=== PATIENT | female | born 1980 | race Caucasian/White ===

== ENCOUNTER → 2017-07-21 12:39 | Outpatient (CLI) | payer OTHER, SELFPAY ==
[2017-07-24 12:17] LABS: HPV Reflexed? NOT INDICATED
== END ==
PROVIDERS: Family Provider Family Medicine; PCP Family Medicine; Visit Provider Obstetrics & Gynecology
DX: Z12.4 Encounter for screening for malignant neoplasm of cervix (principal)
CPT/HCPCS: 88175; G0145

== ENCOUNTER → 2018-04-26 15:17 | Outpatient (CLI) | payer OTHER, SELFPAY ==
[2018-04-26 17:44] LABS: Chlamydia Trachomatis by PCR Negative (Negative); Neisserai gonorrhoeae by PCR Negative (Negative); Probe Check PASS; Sample Adequacy Control PASS; Specimen Processing Control PASS
== END ==
PROVIDERS: Family Provider Family Medicine; PCP Family Medicine; Visit Provider Obstetrics & Gynecology
DX: Z11.3 Encounter for screening for infections with a predominantly sexual mode of transmission (principal)
CPT/HCPCS: 87491; 87591

== ENCOUNTER 2018-08-23 14:00 | Outpatient (CLI) | payer OTHER, SELFPAY ==
[2016-11-28 14:28] VITALS: BMI 33.0
[2018-08-23 14:23] VITALS: BMI 37.3
[2018-08-23 14:42] LABS: ROM Internal Control Test YES-OK TO RESULT pt. (Internal QC); ROM Patient Test Negative (Negative)
--- NOTE | 2018-08-24 07:50 | OB.TRI.HP_ITS ---
History of Present Illness Was patient seen by the physician?: Yes Reason For Visit: R/O ROM Date of Service: 08/23/18 Final LÓPEZ: 12/02/18 Final LÓPEZ Source: US <20 weeks Gestational age: 25 Weeks and 4 Days History of Present Illness: 25+ week intrauterine who was at home and noticed a pop. She began having some leaking of fluid. Presented to labor and delivery to rule out rupture of membranes. Allergies No Known Allergies Allergy (Verified 11/27/16 22:03) Laboratory Studies: Laboratory Tests 3 08/23/18 Range/Units 14:15 Vag Amniotic Fld Detect Negative (Negative) NST - FHR Rate Baby A NST Reactive:: Appropriate for gestational age FHR Category:: Category I Impression/Plan 25+ week intrauterine with vaginal discharge versus leaking of urine. ROM test was negative. Sterile speculum exam which was negative nitrazine. Cervix was closed thick and high. No vaginal bleeding noted. Continue routine follow-up in the office.
== END 2018-08-23 15:30 | disposition home or self-care (01) ==
LOC: WPOUT 14:08 → WP 14:08
PROVIDERS: Family Provider Family Medicine; PCP Family Medicine; Referring Provider Obstetrics & Gynecology; Visit Provider Obstetrics & Gynecology
DX: Z03.71 Encounter for suspected problem with amniotic cavity and membrane ruled out (principal)
CPT/HCPCS: 59025; 59050; 84112; 99218; G0378

== ENCOUNTER → 2018-11-02 | Outpatient (CLI) | payer OTHER, SELFPAY | END | disposition home or self-care (01) | LOC: LABSPEC 11-03 10:16 | PROVIDERS: Visit Provider Obstetrics & Gynecology | DX: Z36.85 Encounter for antenatal screening for Streptococcus B (principal) | CPT/HCPCS: 87081 ==

== ENCOUNTER 2018-12-03 06:59 | Inpatient (IN) | payer OTHER, SELFPAY ==
[2018-12-03] MEDS: Lactated Ringers 1,000 ML 50 ML IV (07:30)
[2018-12-03 07:37] VITALS: BMI 39.1
[2018-12-03 08:06] LABS: Absolute Lymphocyte Count 1.67 X10^3/uL (0.83-4.51); Basophil# 0.03 X10^3/uL; Basophil% 0.4 % (0-1); Eosinophil# 0.08 X10^3/uL; Eosinophils% 1.1 % (0-5); Hemoglobin 11.7 g/dL (12.0-15.0); Lymphocyte # 1.67 X10^3/ul (4.0); Lymphocyte % 22.6 % (19-41); Mean Corp Hgb Conc 31.6 g/dL (32-36); Mean Corpuscular Hgb 25.5 pg (27.0-32.0); Mean Corpuscular Volume 80.6 fL (81-99); Mean Platelet Vol. 10.3 fl (6.2-12.0); Monocyte# 0.61 X10^3/uL; Monocyte% 8.2 % (0-10); NRBC Flagged by Analyzer 0 % (0-5); Neutrophil # 4.98 X10^3/uL (2.7-7.7); Neutrophil % 67.3 % (47-70); Platelet Count 135 K/mm3 (150-450); RBC Distribution Width CV 14.4 % (11.6-14.6); RBC Distribution Width SD 41.9 fl (35.1-43.9); Red Blood Count 4.59 M/mm3 (4.2-5.4); White Blood Count 7.4 K/mm3 (4.4-11.0)
--- NOTE | 2018-12-03 08:09 | PCM.HPOB.BLA ---
History and Physical Date of Admission: 12/03/18 OB HISTORY AND PHYSICAL EXAMINATION History of this : 38 yo female Ab0 with EDC 12/02/2018 by 8 weeks 4 days Ultrasound, presents to Labor and Delivery for scheduled induction of labor at 40 1/7 wk with favorable cervix. Feeling some UCs. Plans epidural care remarkable for: A positive Rubella immune. GBS negative. 1. borderline poly RAJI=21cm @ 20 weeks 6 days--repeat u/s 28 weeks 2.) Plan H delivery 3.) Declines MSAFP, CF testing Pertinent Past Medical History: As above. Allergies: NKDA Medications: During - Calcium 500 + D 500 mg(1,250mg) -400 unit tablet; Claritin 10 mg tablet; magnesium 250 mg tablet; Supplement (s) [No Strength]; Supplement (s) [No Strength]; Vitamin C 500 mg tablet; Glucophage XR 750 mg tablet,extended release; Vitamins; albuterol sulfate 90 mcg/actuation HFA Aerosol Inhaler; Probiotic 10 billion cell capsule Review of Systems: Non-contributory Feeling some UCs. PHYSICAL EXAMINATION General Appearance: 38 yo female in no acute distress Vital Signs: AF, VSS Heart: RRR without rubs or gallops Lungs: CTA x 2 Breasts: deferred Abdomen: gravid Cervix: 3/50/-2 AROM clear. Presentation: cephalic Size: AGA Movement: present Heart: 130-140s avg variability Accels. Reassuring with UCs q 3-7 mins(spont) Impression /Plan: Intrauterine . 40 1/7 wk induction. Admit. Plans epidural. AROM performed, Pitocin started. Plts OK for epidural. Patient seen and examined at time of this H and P. See progress notes for changes Fili Connor MD 12/03/18 [id number]
[2018-12-03] MEDS: Oxytocin 30 units/NS 500 ml 30 UNITS/500 ML IV.SOLN IV (08:10)
[2018-12-03] MEDS: Lactated Ringers 500 ML 999 ML IV (10:05)
[2018-12-03] MEDS: fentaNYL-bupivacaine (epidural) 100 ML BAG EPIDURAL ×2 (11:00→14:53)
[2018-12-03] MEDS: Amnioinfusion- 0.9% NS 1,000 ML IV.SOLN. 300 ML INTRA-UTER (13:45)
[2018-12-03] MEDS: Lactated Ringers 1,000 ML 200 ML IV (14:04)
[2018-12-03] MEDS: Oxytocin 30 units/NS 500 ml 30 UNITS/500 ML IV.SOLN 334 UNITS IV (16:00)
--- NOTE | 2018-12-03 16:15 | PCM.OPRPT ---
Vaginal Delivery Maternal Presentation: Elective Induction Method of Induction: Pitocin, Amniotomy Amniotic Membrane Rupture Type: Artificial Amniotic Fluid Description: Clear Final LÓPEZ: 12/02/18 Final LÓPEZ Source: US <20 weeks Gestational age: 40 Weeks and 1 Days Date of Procedure: 12/03/18 Pre-Operative Diagnosis: IUP Post-Operative Diagnosis: IUP Surgery/ Procedure Performed: Vacuum Assisted Vaginal Delivery Type of Anesthesia: Epidural Description of Procedure: Spontaneous vaginal delivery of a viable male with Apgars of 7/9 from an occiput anterior presentation with clear amniotic fluid and normal three-vessel placenta. Cord around the neck x1 tight and across the chest. No episiotomy. Second-degree midline laceration repaired with 3-0 Vicryl suture with epidural anesthesia. Kiwi vacuum suction used x2 gentle pulls from low outlet to expedite delivery of the head due to deep decelerations with pushing. 10 pressure pop-off. Sponges okay. Delivery physician: Tj Hahn MD. Presentation: Vertex Placental Delivery Description: Spontaneous Placenta Disposition: [facility] Cord Vessel Description: 3 Vessels Cord Entanglement: Around neck x 1, tight Estimated Blood Loss: 250 cc Infant A gender: Male (1 minute): 7 (5 minute): 9 Episiotomy Description: None Laceration: Midline, 2nd degree Medications given after delivery: IV Pitocin Complications: None
--- NOTE | 2018-12-03 16:18 | DCINST_ITS ---
Discharge Diet: No Restrictions Discharge Activity: May Shower, May Take a Tub Bath May resume sexual activity in: 4-6 weeks Additional Activity Instructions:: Nothing in the vagina for 4-6 weeks. You may return to work/school in 6 weeks. Call your doctor if you observe: Fever of 101 or Higher, Inability to urinate, Inability to have a bowel movement, Using more than one pad per hour Additional Instructions: If you experience any of the following, contact your healthcare provider. * Bleeding that soaks a pad every hour for 2 hours * Unrelieved incision or abdominal pain * Swelling, redness, discharge or bleeding from your incision or episiotomy site * Your incision begins to separate * Problems urinating (including inability to urinate or burning while urinating). * Visual changes * Severe headache * Flu-like symptoms * Pain or redness in one of both of your breasts * Pain, warmth, tenderness or swelling in your legs, especially the calf area * Frequent nausea and vomiting * Symptoms of depression or anxiety If you experience any of the following, call 911 or go to the nearest Emergency Room. * Chest pain * Problems breathing * Seizure activity * Partial or complete paralysis of a body part, slurred speech, weakness or drooping of the face, or a sudden inability to walk or hold your balance Allergies/Adverse Reactions: Allergies No Known Allergies Allergy (Verified 11/27/16 22:03) Medications to take at Discharge Vits [Prenatabs FA ] 1 tab PO DAILY 08/23/18 Albuterol Sulfate 12/03/18 Please Follow Up With: Tj Hahn MD - [phone] When: Call to make an appointment with your doctor in 6 weeks. Primary Care Physician: Marianna Acevedo PA-C [Primary Care Provider] - Test Results: Test results from this visit will be discussed in further detail at your follow- up appointment, if applicable.
--- NOTE | 2018-12-03 16:18 | PCM.DCVAG ---
Discharge Diet: No Restrictions Discharge Activity: May Shower, May Take a Tub Bath May resume sexual activity in: 4-6 weeks Additional Activity Instructions:: Nothing in the vagina for 4-6 weeks. You may return to work/school in 6 weeks. Call your doctor if you observe: Fever of 101 or Higher, Inability to urinate, Inability to have a bowel movement, Using more than one pad per hour Additional Instructions: If you experience any of the following, contact your healthcare provider. Bleeding that soaks a pad every hour for 2 hours Unrelieved incision or abdominal pain Swelling, redness, discharge or bleeding from your incision or episiotomy site Your incision begins to separate Problems urinating (including inability to urinate or burning while urinating). Visual changes Severe headache Flu-like symptoms Pain or redness in one of both of your breasts Pain, warmth, tenderness or swelling in your legs, especially the calf area Frequent nausea and vomiting Symptoms of depression or anxiety If you experience any of the following, call 911 or go to the nearest Emergency Room. Chest pain Problems breathing Seizure activity Partial or complete paralysis of a body part, slurred speech, weakness or drooping of the face, or a sudden inability to walk or hold your balance Allergies/Adverse Reactions: Allergies No Known Allergies Allergy (Verified 11/27/16 22:03) Medications to take at Discharge Vits [Prenatabs FA ] 1 tab PO DAILY 08/23/18 Albuterol Sulfate 12/03/18 Please Follow Up With: Tj Hahn MD - [phone] When: Call to make an appointment with your doctor in 6 weeks. Primary Care Physician: Marianna Acevedo PA-C [Primary Care Provider] - Test Results: Test results from this visit will be discussed in further detail at your follow-up appointment, if applicable.
[2018-12-03 20:05] VITALS: BP 151/81; PULSE 109; RESP 18; TEMP 35.8
--- NOTE | 2018-12-03 21:45 | NURSING ---
2120 Assisted pt up to BR at this time. Pt tolerated well, with no c/o dizziness. Educated pt on pericare, importance of frequent voiding and s/s to report.
[2018-12-03 23:30] VITALS: BP 123/65; PULSE 96; RESP 16; TEMP 36.5
[2018-12-04 04:00] VITALS: BP 132/79; PULSE 96; RESP 16; TEMP 36.6
[2018-12-04 07:40] VITALS: BP 137/77; PULSE 80; RESP 16; TEMP 36.6
--- NOTE | 2018-12-04 08:58 | PCM.PN.OB ---
Subjective: Patient without complaints. Breast-feeding going well. Wants to go home later today if possible. - Physical Exam Vital Signs Temp Pulse Resp BP 97.8 F 80 16 137/77 H 12/04/18 07:40 12/04/18 07:40 12/04/18 07:40 12/04/18 07:40 Oxygen Delivery Method Room Air Weight: 221 lb Body Mass Index (BMI) 39.1 Intake and Output for Last 24 Hours 12/02/18 12/03/18 12/04/18 23:59 23:59 23:59 Intake Total 3313.87 / 3313.87 Output Total 2550 / 2550 Balance 763.87 / 763.87 Laboratory Tests Past 24 Hrs 12/03/18 07:30 Blood Type A POSITIVE Antibody Screen NEGATIVE Medical Necessity - Tobacco Use Smoking Status: Never smoker Assessment/Plan Doing well day #1 status post routine spontaneous vaginal delivery. Will release to home with routine instructions.
[2018-12-04] MEDS: Ibuprofen 600 MG Tablet PO (11:26)
[2018-12-04 11:30] VITALS: BP 136/82; PULSE 93; RESP 16; TEMP 36.4; O2SAT 98
[2018-12-04 14:00] VITALS: BP 138/81; PULSE 86; RESP 16; TEMP 36.3
[2018-12-04 18:00] VITALS: BP 138/81; PULSE 86; RESP 16; TEMP 36.3
[2018-12-04 18:44] VITALS: BP 138/81; PULSE 86; RESP 16; TEMP 36.3
== END 2018-12-04 18:20 | disposition home or self-care (01) | DRG 807 ==
PROVIDERS: Admitting Provider Obstetrics & Gynecology; Family Provider Family Medicine; PCP Family Medicine; Referring Provider Obstetrics & Gynecology; Visit Provider Obstetrics & Gynecology
DX: O69.1XX0 Labor and delivery complicated by cord around neck, with compression, not applicable or unspecified (principal); Z37.0 Single live birth; Z3A.40 40 weeks gestation of pregnancy; O70.1 Second degree perineal laceration during delivery
CPT/HCPCS: 59025; 59050; 85025; 86850; 86900; 86901; 99218; J7030; J7120; G0378

== ENCOUNTER 2018-12-08 04:30 | Outpatient (CLI) | payer OTHER, SELFPAY ==
[2018-12-08 05:55] VITALS: BMI 36.5
[2018-12-08 06:03] LABS: Hematocrit 30.5 % (37-47); Hemoglobin 9.6 g/dL (12.0-15.0); Mean Corp Hgb Conc 31.5 g/dL (32-36); Mean Corpuscular Hgb 25.9 pg (27.0-32.0); Mean Corpuscular Volume 82.2 fL (81-99); Mean Platelet Vol. 9.6 fl (6.2-12.0); Platelet Count 159 K/mm3 (150-450); RBC Distribution Width CV 14.5 % (11.6-14.6); RBC Distribution Width SD 42.7 fl (35.1-43.9); Red Blood Count 3.71 M/mm3 (4.2-5.4); White Blood Count 5.2 K/mm3 (4.4-11.0)
[2018-12-08 06:15] LABS: Partial Thromboplast Time 25.8 Seconds (24.1-36.2); Prothrombin Time (Protime)PT. 13.2 SECONDS (11.7-14.9)
[2018-12-08 06:15] LABS: Protein, Urine (Random) 8.4 mg/dL (<11.9); Protein:Creat Ratio 249 mg/g CRE (0-200)
[2018-12-08 06:23] LABS: AST(SGOT) 15 U/L (15-37); Alanine Aminotransfer ALT/SGPT 19 U/L (13-56); Creatinine, Serum 0.54 mg/dL (0.55-1.02); EST Glomerular Filtration Rate 134 mL/min (>60); Est Glom Filt Rate - Afr Amer 162 mL/min (>60); Estimated Creatinine Clearance 117.99 ml/min
--- NOTE | 2018-12-08 06:44 | PCM.HPOB.BLA ---
History and Physical Date of Admission: 12/08/18 38 yr old female presents with CC of headache 5 days after vaginal delivery on 12/03/18 States headache is frontal to bitemporal and comes and goes. When she has the headache, her BP is elevated. States no history of chronic headaches. Family member recently had preeclampsia. She states at times has RICHARDSON at the back of the head and at neck, which she thought was related to tension. She last took Tylenol at 6 pm yesterday. Breast feeding. States vaginal bleeding is minimal now, slowed down. Denies any RUQ pain. Has some edema of the ankles. States no problems with her BP in but a little elevated at the end of . ALLERGIES: NKDA MEDICATIONS HISTORY: Patient is also takin. Vitamins, daily 2. albuterol sulfate 90 mcg/actuation HFA Aerosol Inhaler, Two puffs three times a day prn REVIEW OF SYSTEMS: GENERAL - Denies fever, or chills SKIN - Denies skin changes EYES - Denies visual changes EARS - Denies difficulty hearing NOSE - Denies nasal congestion or bleeding MOUTH - Denies sore throat or difficulty swallowing NECK - Denies pain or swelling RESPIRATORY - Denies shortness of breath or wheezing CARDIOVASCULAR - Denies palpitations or chest pain GASTROINTESTINAL - Denies nausea, vomiting, diarrhea, constipation GENITOURINARY - Denies dysuria, frequency of urination, incontinence of urine MUSCULOSKELETAL - Denies joint or muscle pain NEUROLOGICAL - Denies localized numbness or weakness PSYCHIATRIC - Denies depression or anxiety ENDOCRINE - Denies heat or cold intolerance, weight loss or gain HEMATO-IMMUNOLOGIC - Denies excessive bleeding with cuts PAST HISTORY: Breast/Ovarian/Colon Cancers - Cousins x 2 with Cervical Ca Infections - Chicken pox Illnesses - allergies and seasonal Accidents - None History of Abnormal PAPS - Denies Hospitalizations - None SURGICAL HISTORY: 1. 11/28/[address] Harvey 2. [place] MENSTRUAL HISTORY: LMP Known?- UnknownAmount/Duration - 7 to 10 days, Regularity - Irregular, Frequency - variable days, LMP - 06/17/17, Age Onset Menarche - 13 PAST PREGNANCIES: Total Pregnancies - 5; Full Term Pregnancies - 2; Premature - 0; Abortions, Induced - 0; Abortions, Spontaneous - 2; Ectopics - 0; Multiple Births - 0; Living Children - 2 FAMILY HISTORY: nc SOCIAL HISTORY: Alcohol Use - None Smoking - Never Diet - no special diet Lifestyle - moderate stress lifestyle and Exercise - active Seat Belt Use - most of the time Employer - [employer] Job Description - Deputy [employer] Illicit Drug Use - None Sexual Activity - Spouse-Sig Other Name - Elvis Siegel Spouse-Sig Other Occupation - [employer] --Agriculture Dept Spouse-Sig Other Phone No - Bottle Machine Operator Children Name(s) - Talat(10), Manuel (13) Control - 12/03/18 Vacuum delivery male (JW) Physical exam BP 135/87 to 150/90. CONSTITUTIONAL - NAD, well nourished, and well developed Lying semirecumbent in bed, holding nursing baby. HEENT - Normocephalic, PERRLA, EOMI NECK - no nuchal rigidity LUNGS - normal respiratory rate and rhythm CARDIAC - Regular rate and rhythm without rubs, murmurs, or gallops BREAST - deferred ABDOMEN - Without hepatosplenomegaly, distention, masses, rebound, or guarding; normal bowel sounds; no hernias EXTREMITIES - + edema NEUROLOGICAL - Cranial nerves II-XII grossly intact PSYCHIATRIC - A and O to time, place, person, mood and affect A/P: 38 yr old G3now P3 female, 5 d status post vaginal delivery. With CC of RICHARDSON. -- observation, PIH labs including protein/cr ratio on cath urine -- Tylenol 1000 mg PO times one Continue care. Advised of diff dx of headache after delivery.
[2018-12-08] MEDS: Acetaminophen 500 MG Tablet 1000 MG PO (06:46)
--- NOTE | 2018-12-08 06:54 | OB.TRI.PN_ITS ---
Progress Notes Date of Service: 12/08/18 Progress Note: [facility] labs all WNL except for clean catch Protein/Creatinine ratio. Vaginal bleeding after recent delivery. Advised RN that will need to repeat this urine check on cath urine specimen as vaginal bleeding may contaminate/alter value. Pt is now breast feeding. Will have cath UA after done nursing. Laboratory Studies: Laboratory Tests 12/08/18 12/08/18 12/08/18 Range/Units 05:55 05:45 05:45 WBC (4.4-11.0) K/mm3 RBC (4.2-5.4) M/mm3 Hgb (12.0-15.0) g/dL Hct (37-47) % MCV (81-99) fL MCH (27.0-32.0) pg MCHC (32-36) g/dL RDW Std Deviation (35.1-43.9) fl RDW Coeff of Tali (11.6-14.6) % Plt Count (150-450) K/mm3 MPV (6.2-12.0) fl PT 13.2 (11.7-14.9) SECONDS INR 1.0 APTT 25.8 (24.1-36.2) Seconds Creatinine 0.54 L (0.55-1.02) mg/dL Estim Creat Clear Calc 117.99 ml/min Est GFR (MDRD) Af Amer 162 (>60) mL/min Est GFR (MDRD) Non-Af 134 (>60) mL/min Uric Acid 4.0 (2.6-6.0) mg/dL AST 15 (15-37) U/L ALT 19 (13-56) U/L U Random Total Protein 8.4 (<11.9) mg/dL Urine Creatinine 33.70 (NO RANGE EST.) mg/dL Protein/Creatinin Ratio 249 H (0-200) mg/g CRE 12/08/18 Range/Units 05:45 WBC 5.2 (4.4-11.0) K/mm3 RBC 3.71 L (4.2-5.4) M/mm3 Hgb 9.6 L (12.0-15.0) g/dL Hct 30.5 L (37-47) % MCV 82.2 (81-99) fL MCH 25.9 L (27.0-32.0) pg MCHC 31.5 L (32-36) g/dL RDW Std Deviation 42.7 (35.1-43.9) fl RDW Coeff of Tali 14.5 (11.6-14.6) % Plt Count 159 (150-450) K/mm3 MPV 9.6 (6.2-12.0) fl PT (11.7-14.9) SECONDS INR APTT (24.1-36.2) Seconds Creatinine (0.55-1.02) mg/dL Estim Creat Clear Calc ml/min Est GFR (MDRD) Af Amer (>60) mL/min Est GFR (MDRD) Non-Af (>60) mL/min Uric Acid (2.6-6.0) mg/dL AST (15-37) U/L ALT (13-56) U/L U Random Total Protein (<11.9) mg/dL Urine Creatinine (NO RANGE EST.) mg/dL Protein/Creatinin Ratio (0-200) mg/g CRE
--- NOTE | 2018-12-08 06:57 | OB.TRI.PN ---
Progress Notes Date of Service: 12/08/18 Progress Note: S: Resting, in arms, c/o intermittent RICHARDSON; denies visual changes, epigasgtric pain O: BPs 130s/80s-150s/80s Lungs CTA Fundus firm, midline, u/4, lochia scant Dtrs 2+ bilateral LE, no clonus; bilateral LE edema, 1+ pitting Labs WNL w/exception of H/H indicative of anemia, and elevated urine protein, lochia contamination A: , days 5 days PP R/O PP Preeclampsia Anema, asymptomatic P: Comanage with Dr. Geeta Escalona for RICHARDSON St cath, resend urine Expectant management Laboratory Studies: Laboratory Tests 12/08/18 12/08/18 12/08/18 Range/Units 05:55 05:45 05:45 WBC (4.4-11.0) K/mm3 RBC (4.2-5.4) M/mm3 Hgb (12.0-15.0) g/dL Hct (37-47) % MCV (81-99) fL MCH (27.0-32.0) pg MCHC (32-36) g/dL RDW Std Deviation (35.1-43.9) fl RDW Coeff of Tali (11.6-14.6) % Plt Count (150-450) K/mm3 MPV (6.2-12.0) fl PT 13.2 (11.7-14.9) SECONDS INR 1.0 APTT 25.8 (24.1-36.2) Seconds Creatinine 0.54 L (0.55-1.02) mg/dL Estim Creat Clear Calc 117.99 ml/min Est GFR (MDRD) Af Amer 162 (>60) mL/min Est GFR (MDRD) Non-Af 134 (>60) mL/min Uric Acid 4.0 (2.6-6.0) mg/dL AST 15 (15-37) U/L ALT 19 (13-56) U/L U Random Total Protein 8.4 (<11.9) mg/dL Urine Creatinine 33.70 (NO RANGE EST.) mg/dL Protein/Creatinin Ratio 249 H (0-200) mg/g CRE 12/08/18 Range/Units 05:45 WBC 5.2 (4.4-11.0) K/mm3 RBC 3.71 L (4.2-5.4) M/mm3 Hgb 9.6 L (12.0-15.0) g/dL Hct 30.5 L (37-47) % MCV 82.2 (81-99) fL MCH 25.9 L (27.0-32.0) pg MCHC 31.5 L (32-36) g/dL RDW Std Deviation 42.7 (35.1-43.9) fl RDW Coeff of Tali 14.5 (11.6-14.6) % Plt Count 159 (150-450) K/mm3 MPV 9.6 (6.2-12.0) fl PT (11.7-14.9) SECONDS INR APTT (24.1-36.2) Seconds Creatinine (0.55-1.02) mg/dL Estim Creat Clear Calc ml/min Est GFR (MDRD) Af Amer (>60) mL/min Est GFR (MDRD) Non-Af (>60) mL/min Uric Acid (2.6-6.0) mg/dL AST (15-37) U/L ALT (13-56) U/L U Random Total Protein (<11.9) mg/dL Urine Creatinine (NO RANGE EST.) mg/dL Protein/Creatinin Ratio (0-200) mg/g CRE
[2018-12-08 08:05] LABS: Protein, Urine (Random) < 6.0 mg/dL (<11.9)
== END 2018-12-08 08:45 | disposition home or self-care (01) ==
LOC: WPOUT 05:18 → WP 05:19
PROVIDERS: Obstetrics & Gynecology; Family Provider Family Medicine; PCP Family Medicine; Visit Provider Advanced Practice Midwife
DX: O90.89 Other complications of the puerperium, not elsewhere classified (principal); R51 Headache
CPT/HCPCS: 36415; 82565; 82570; 84156; 84450; 84460; 84550; 85027; 85610; 85730; 99218; G0378

== ENCOUNTER → 2020-05-08 | Outpatient (CLI) | payer OTHER, SELFPAY ==
[2020-05-11 16:51] LABS: HPV Reflexed? NOT INDICATED
== END | disposition home or self-care (01) ==
LOC: LABSPEC 05-09 09:20
PROVIDERS: PCP Family Medicine; Visit Provider Obstetrics & Gynecology
DX: Z12.4 Encounter for screening for malignant neoplasm of cervix (principal)
CPT/HCPCS: 88175; G0145

== ENCOUNTER → 2022-01-28 | Outpatient (CLI) | payer OTHER, SELFPAY ==
--- NOTE | 2022-01-28 08:48 | BI_ITS ---
DIGITAL MAMMOGRAPHY - BILATERAL DIAGNOSTIC REASON FOR EXAM: Female, 41 years old. Left breast pain last week which has resolved. PERTINENT HISTORY: Non-contributory. TECHNIQUE: Digital examination. Mediolateral oblique (MLO) and craniocaudad (CC) views of both breasts were obtained. CAD: Computer Aided Detection was performed on this study. COMPARISON: None. Baseline examination. FINDINGS: Breast Composition: There are scattered areas of fibroglandular density. There are no dominant masses or suspicious calcifications. Specifically, in the left breast, there is no abnormality.. BI/DIAG MAMM W/CAD, BILAT IMPRESSION: No abnormality of either breast. Yearly follow-up screening mammogram recommended. ASSESSMENT CATEGORY: BIRADS Category 2: Benign. FOLLOW UP RECOMMENDATION: Follow up recommended within 12 months. STATISTICAL INFORMATION FOR PATIENTS AND PHYSICIANS: A. A negative report should not delay biopsy if a dominant mass or clinically suspicious mass is present. 5-8% of breast cancers are not identified by mammography. B. Comparison with prior films increases the sensitivity of mammography for detection of early malignancy. Screening mammography is done annually to evaluate subtle changes of the breasts that otherwise may not be apparent without comparison to previous examinations. While attempts to retrieve prior examinations will be made on your behalf when thought to be necessary in the workup of a suspicious finding, it is the patient''s responsibility to provide the examining facility with any prior examinations. All patients aged 40 years and older undergoing screening mammography are entered into a reminder system with a target date for the next mammogram. Electronically Signed: Silviano , at 9:50 EST ,
== END | disposition home or self-care (01) ==
PROVIDERS: PCP Family Medicine; Referring Provider Student in an Organized Health Care Education/Training Program; Visit Provider Student in an Organized Health Care Education/Training Program
DX: Z12.31 Encounter for screening mammogram for malignant neoplasm of breast (principal); N64.4 Mastodynia
CPT/HCPCS: 77062; 77066; G0279

== ENCOUNTER → 2023-08-20 | Outpatient (CLI) | payer OTHER, SELFPAY ==
--- NOTE | 2023-08-20 15:22 | BI_ITS ---
MAMMOGRAPHY - BILATERAL SCREENING REASON FOR EXAM: Female, 43 years old. Routine annual screening examination. PERTINENT HISTORY: Non-contributory. TECHNIQUE: Digital bilateral breast cody (3D mammographic acquisition) in the CC and MLO projections. 2-D mediolateral oblique (MLO) and craniocaudad (CC) views of both breasts were obtained. CAD: Full Field Digital Mammography with Computer Added Detection was performed. COMPARISON: Comparison is made with prior study dated January 28, 2022. FINDINGS: Breast Composition: There are scattered areas of fibroglandular density. There are no dominant masses or suspicious calcifications. Stable fat-containing bilateral axillary lymph nodes. No other significant abnormalities are identified. There has been no significant change since the prior study. BI/SCRN MAMM (CAD)W/CODY BILAT IMPRESSION: Stable bilateral screening mammogram. Yearly follow-up mammogram recommended. (A) ASSESSMENT CATEGORY: BIRADS Category 2: Benign. A letter regarding these results will be sent to the patient by the facility within 30 days. Approximately 10% of breast cancers are not detected by mammography. A normal mammogram should not delay biopsy of a clinically suspicious abnormality. [id number] Electronically Signed: Yovanny Villalta MD at 8:45 EDT ,
== END | disposition home or self-care (01) ==
LOC: OPBI 15:21
PROVIDERS: PCP Family Medicine; Referring Provider Family Medicine; Visit Provider Family Medicine
DX: Z12.31 Encounter for screening mammogram for malignant neoplasm of breast (principal)
CPT/HCPCS: 77063; 77067